=== PATIENT | female | born 1990 | race Two or more races ===

== ENCOUNTER 2024-11-23 06:09 | Emergency (ER) | payer MEDICAID, SELFPAY ==
[2024-11-23 06:12] VITALS: PULSE 84; O2SAT 99; BMI 27.4
[2024-11-23 06:19] VITALS: BP 129/68; PULSE 96; RESP 20; TEMP 37; O2SAT 100
[2024-11-23 06:50] VITALS: PULSE 88
[2024-11-23 07:10] LABS: Basophils # (Auto) 0.0 Thou/mm3 (0.0-0.2); Basophils % (Auto) 0 % (0-2.5); Eosinophils # (Auto) 0.1 Thou/mm3 (0.0-0.5); Eosinophils % (Auto) 1 % (0-10); Hematocrit 31.5 % (36.0-46.0); Hemoglobin 10.9 g/dL (12.0-16.0); Immature Granulocytes Auto 0.06 Thou/mm3 (0.00-0.00); Lymphocytes # (Auto) 1.7 Thou/mm3 (1.0-4.8); Lymphocytes % (Auto) 16 % (10-50); Mean Corpuscular HGB Conc 34.6 g/dl (31.0-37.0); Mean Corpuscular Hemoglobin 29.1 pg (25.0-35.0); Mean Corpuscular Volume 84 fL (80-100); Monocytes # (Auto) 0.7 Thou/mm3 (0.0-0.8); Monocytes % (Auto) 6 % (0-12); Neutrophils # (Auto) 8.5 Thou/mm3 (1.8-7.7); Neutrophils % (Auto) 76 % (37-80); Nucleated Red Blood Cell # 0.00 Thou/mm3 (0.00-0.00); Nucleated Red Blood Cell % 0 /100 WBC (0); Platelet Count 284 Thou/mm3 (140-440); RDW Standard Deviation 38.5 fL (36.4-46.3); Red Blood Count 3.75 Miln/mm3 (4.00-5.20); White Blood Count 11.1 Thou/mm3 (3.6-11.0)
[2024-11-23 07:30] LABS: Alanine Aminotransferase 21 U/L (10-49); Albumin, Serum 3.6 gm/dL (3.5-5.0); Albumin/Globulin Ratio 2.1 (1.2-2.2); Alkaline Phosphatase 79 U/L (46-116); Amylase 89 U/L (30-118); Anion Gap 13 (7-16); Aspartate Amino Transferase 43 U/L (0-34); BUN/Creatinine Ratio 11 Ratio (12-20); Bilirubin,Total 0.9 mg/dL (0.3-1.2); Blood Urea Nitrogen 9 mg/dL (9-23); Calcium 8.4 mg/dL (8.3-10.6); Calcium (Corrected) 8.7 mg/dL (8.5-10.1); Carbon Dioxide 17.7 mMol/L (20.0-31.0); Chloride 105 mMol/L (98-107); Creatinine (Component) 0.8 mg/dL (0.6-1.3); Estimated Creatinine Clearance 89.6 mL/min (>60); Globulin 1.7 gm/dL (2.3-3.5); Glucose 169 mg/dL (74-106); Magnesium 1.4 mg/dL (1.6-2.6); Osmolality,Calculated 274 (275-295); Potassium 3.3 mMol/L (3.4-5.1); Sodium 136 mMol/L (136-145); Total Protein 5.3 gm/dL (5.7-8.2); eGFR > 60 See Note
[2024-11-23] MEDS: SODIUM CHLORIDE 0.9% 1000 ML 1,000 ML 999 ML IV (07:31)
[2024-11-23 09:21] LABS: INR 1.1 (0.9-1.3); Prothrombin Time 11.9 Seconds (9.0-12.2)
[2024-11-23 09:34] LABS: Collection Type, Urine Clean Catch
--- NOTE | 2024-11-23 09:39 | PD.EDABDPN ---
ED Abdominal Pain RME/HPI General Chief Complaint: Abdominal Pain Stated complaint: ABDOMINAL PAIN Time seen by provider: 11/23/24 06:40 Arrival date/time: 11/23/24 06:09 Source: patient Mode of arrival: ambulatory Limitations: no limitations and other (Patient writhing with abdominal pain moving from [id number] on the bed. Patient had difficulty staying still for exam) RME / HPI RME / HPI narrative: 34-year-old female with onset of abdominal pain x 1 day. Patient states she has had prior abdominal pain similar. There is no specific location of the pain she states it is all over her abdomen. She has had a prior surgery 2 years ago with abdominal pain. She denies any fever chills, nausea, vomiting constipation or diarrhea. She has not eaten any unusual foods. No foreign travel or recent camping. MD complaint: abdominal pain Onset (ago): hour(s) Consistency: constant Location: diffuse Severity: moderate Severity scale (1-10): 5 Quality: cramping Radiation: none Migration to: no migration Relieving factors: nothing Exacerbating factors: nothing Associated symptoms: denies other symptoms Related Data Home Medications ?Medication ?Instructions ?Recorded ?Confirmed pantoprazole 40 mg tablet,delayed 40 mg PO 07/10/23 release (Protonix) Allergies Allergy/AdvReac Type Severity Reaction Status Date / Time No Known Allergies Allergy Verified 11/23/24 06:15 Review of Systems Review of Systems Systems Reviewed: All systems reviewed, normal except as documented Past Medical History Past Medical History NEUROLOGIC: Negative Neurological Disorders or Seizures CARDIAC: Negative Cardiac Disorders or Congestive Heart Failure RESPIRATORY: Negative Chronic Obstructive Pulmonary Disease (COPD) or Asthma GASTROINTESTINAL: Positive Gastrointestinal Disorders, Gall Bladder Disease, Ulcer, Obstructive Bowel and Gastroesophageal Reflux Disease; Negative Colorectal Cancer GENITOURINARY: Negative Genitourinary Disorders, Renal Disease or Prostate Cancer REPRODUCTIVE: Positive Previous Pregnancies; Negative Breast Cancer, Pelvic Inflammatory Disease or Testicular Cancer MUSCULOSKELETAL: Negative Musculoskeletal Disorders or Bone Cancer ENDOCRINE: Negative Endocrine Disorders, Diabetes Mellitus Type 1, Diabetes Mellitus Type 2, [place]'s Syndrome, [place]'s Disease or Adrenal Disease HEMATOLOGIC: Negative Sickle Cell Disease PSYCHO/SOCIAL: Positive Recreational Drug Use and Anxiety OTHER HISTORY: Positive Hospitalization and Clostridium Difficile; Negative Developmental Delay, Chicken Pox, Cancer, Breast Cancer, Cervical Cancer, Colorectal Cancer, Lung Cancer, Ovarian Cancer, Prostate Cancer or Testicular Cancer Family History FAMILY HISTORY: Positive Family Cardiac Disorders Surgical History SURGICAL: Positive Abdominal Surgery and Bowel Surgery; Negative Endocrine Surgery, Thyroidectomy, Ear Surgery, Tympanostomy Tube, Eye Surgery, Nephrectomy, Joint Replacement or Mastectomy Social History SMOKING STATUS: Never smoker SECOND HAND EXPOSURE: No SUBSTANCE USE: marijuana (daily ) ED Exam General Limitations: Present no limitations and other (Patient writhing with abdominal pain moving from [id number] on the bed. Patient had difficulty staying still for exam) General appearance: Present alert and in no apparent distress Head Head exam: Present atraumatic Eye Eye exam: Present normal appearance, PERRL and EOMI ENT ENT exam: Present normal exam, normal oropharynx and mucous membranes moist Neck Neck exam: Present normal inspection, full ROM and trachea midline Chest Chest inspection: Present normal inspection and symmetric chest wall rise Respiratory Respiratory exam: Present normal lung sounds bilaterally Cardiovascular Cardiovascular exam: Present regular rate, normal rhythm and normal heart sounds Abdominal Exam Abdominal exam: Present soft and normal bowel sounds; Absent organomegaly, tenderness at McBurney's Point, mass or hernia Abdominal tenderness: Present diffuse Rectal Exam Rectal exam: Present deferred Extremities Exam Extremities exam: Present normal inspection and full ROM Back Exam Back exam: Present normal inspection and full ROM Neurological Exam Neurological exam: Present alert, oriented X3 and CN II-XII intact Psychiatric Psychiatric exam: Present normal affect and normal mood Skin Skin exam: Present warm, dry, intact and normal color Course Course Course Narrative: Workup was ordered for her abdominal pain. Patient decided that she was feeling better wanted to go home. She appeared stable and in no distress. She did not complete her workup including CAT scan and understood the this was part of the evaluation today that did not occur because of her wanting to leave early. Quality Measures none Orders Category Date Time Status Web Application Developer STAT Care 11/23/24 06:50 Completed Continuous Pulse Oximetry STAT Care 11/23/24 06:50 Completed Insert IV STAT Care 11/23/24 06:50 Completed NPO STAT Care 11/23/24 06:[address] abdomen pelvis wo con Stat Exams 11/23/24 06:50 Ordered Amylase Stat Lab 11/23/24 06:53 Completed CBC Stat Lab 11/23/24 06:53 Completed Comprehensive Metabolic Panel Stat Lab 11/23/24 06:53 Completed HCG Qualitative,Urine Stat Lab 11/23/24 09:30 Completed Magnesium Stat Lab 11/23/24 06:53 Completed Prothrombin Time with INR Stat Lab 11/23/24 08:35 Completed Urinalysis Stat Lab 11/23/24 09:30 Completed Haloperidol Lactate [Haldol Inj] Med 11/23/24 06:50 Discontinued 5 mg IM X1 ONE Midazolam Inj [Versed Inj] Med 11/23/24 06:50 Discontinued 2 mg IVP X1 ONE Potassium Chloride [K-Dur] Med 11/23/24 09:47 Discontinued 20 meq PO X1 ONE Sodium Chloride 0.9% 1000 ml [Ns] 1,000 ml Med 11/23/24 06:50 Discontinued IV 999 mls/hr Vital Signs Vital signs: Vital Signs Temperature 98.6 F 11/23/24 06:19 Pulse Rate 96 11/23/24 06:19 Respiratory Rate 20 11/23/24 06:19 Blood Pressure 129/68 11/23/24 06:19 Pulse Oximetry (%) 100 11/23/24 06:19 Oxygen Delivery Method Room Air 11/23/24 06:19 Pulse ox is 100% on room air which is adequate. Abdominal Pain MDM MDM Narrative MDM Narrative:: Patient is a 34-year-old female with a history of chronic abdominal pain. She has had prior surgery approximately 2 years ago. Currently she feels better after receiving medications and did not complete the workup before wanting to go home. Patient data External records reviewed:: [facility] previous records (I reviewed ED Visit on 01/10/2024 ) and EMS form Clinical information provided by:: patient and EMS Social determinants that could affect healthcare access:: none Patient has the following chronic illnesses:: Chronic abdominal pain. How is presenting disease/condition affected by chronic disease/condition?: caused by Evaluation data The following diagnostics were reviewed and interpreted by me:: lab results and radiology exam(s) Lab and/or radiology exams considered but not ordered:: CT scan of the abdomen pelvis was not performed as the patient declined Interpretation Summary: WBC is 11.1 potassium was 3.3 Patient presents with chronic abdominal pain that is allowing examination. She was given medications including Haldol and Versed. She felt much better and wanted to go home without completing her evaluation including the CAT scan. Medications / Prescriptions Medications or Prescriptions considered but not ordered:: Morphine Medication administrations:: Medication Administration History Discontinued Medications Haloperidol Lactate (Haloperidol Lact Inj 5 Mg/Ml Vial) 5 mg IM X1 ONE Stop: 11/23/24 06:51 Last Admin: 11/23/24 07:49 Dose: Not Given Documented By: KOFFI Non-Admin Reason: pt asleep snooring Sodium Chloride (Ns) 1,000 mls @ 999 mls/hr IV .Q1H1M ONE Stop: 11/23/24 07:50 Last Infusion: 11/23/24 08:32 Dose: Infused Documented By: Admin: 11/23/24 07:31 Dose: 999 mls/hr Documented By: KOFFI Midazolam HCl (Midazolam Inj 1 Mg/Ml Vial 2 Ml) 2 mg IVP X1 ONE Stop: 11/23/24 06:51 Last Admin: 11/23/24 07:49 Dose: Not Given Documented By: KOFFI Non-Admin Reason: Pt asleep snooring Potassium Chloride (Potassium Chloride 20 Meq Tabcr) 20 meq PO X1 ONE Stop: 11/23/24 09:48 As above Consultations Consultation(s) initiated? (list below): No Diagnosis Differential diagnosis abdominal pain: abdominal pain, calculus of kidney, constipation, endometriosis, gastroenteritis, pancreatitis and small bowel obstruction Most likely diagnosis given after review of the tests above:: Abdominal pain Admission Indicated Admission indicated?: not indicated Admission Request Was there a request for admission?: No Disposition Plan Disposition Plan: Discharge Discharge Attestation Discharge Attestation: The patient and all family members were given an opportunity to ask questions and understood the discharge instructions. Discharge instructions specifically effects, indications for sooner follow up or return to the emergency department, and the expected course of current diagnosis. Patient condition: Stable Discharge Plan Plan Patient Disposition: HOME (Self Care) Patient condition on transfer: Stable Prescriptions/Referrals Prescriptions/Med Rec: No Action pantoprazole [Protonix] 40 mg tablet,delayed release (DR/EC) 40 mg PO Referrals: No Primary/Family,Physician [Primary Care Provider] - In 1 week Problem List Clinical Impression: Abdominal pain Patient/Caregiver Discharge Instructions Discharge Activity: activity as tolerated Education Materials: Abdominal Pain Additional Instructions: Continue your usual medications. If you have any increased in symptoms and are concerned please return to the emergency department. Otherwise follow-up with your primary care doctor in 1 to 2 days. Print Language: Kazakh Stand Alone Forms: Agustina Award Info., Patient Portal Info Letter
[2024-11-23 09:44] LABS: Bilirubin,Urine Negative (Negative); Blood,Urine Negative (Negative); Clarity,Urine Clear (Clear/Hazy); Glucose, Urine Trace (Negative); Ketones,Urine Negative (Negative); Leukocyte Esterase,Urine Negative (Negative); Nitrite,Urine Negative (Negative); PH,Urine 6.5 (5.0-7.0); Protein,Urine Negative (Neg - Trace); RBC,Urine 1 /hpf (0-3); Specific Gravity,Urine 1.011 (1.001-1.035); Squamous Epithelial Cell,Urine < 1 /hpf (0-5); Urobilinogen,Urine Negative mg/dL (0.0-1.0); WBC,Urine 1 /hpf (0-5)
[2024-11-23 09:45] LABS: Color,Urine Drk Yellow (Lt Yel-Yel)
[2024-11-23 09:46] LABS: HCG Qualitative,Urine Negative
[2024-11-23 09:49] VITALS: BP 125/76; PULSE 71; RESP 16; TEMP 36.7; O2SAT 98
== END 2024-11-23 09:50 | disposition home or self-care (01) ==
PROVIDERS: Emergency Provider Family Medicine
DX: R10.9 Unspecified abdominal pain (principal); G89.29 Other chronic pain
CPT/HCPCS: 36415; 80053; 81001; 81025; 82150; 83735; 85025; 85610; 96360; 99284; J7030